=== PATIENT | male | born 1990 | race American Indian/Alaskan Native ===

== ENCOUNTER 2021-02-23 14:36 | Emergency (ER) | payer SELFPAY ==
[2021-02-23 14:48] VITALS: BP 130/75
--- NOTE | 2021-02-23 15:14 | Emergency Department Report ---
- General Chief complaint: Neck Pain/Injury Stated complaint: NECK PAIN Time Seen by Provider: 02/23/21 15:06 Source: patient Mode of arrival: Ambulatory Limitations: No Limitations - History of Present Illness Initial comments: 10-year-old male with no significant past medical history presents to the ER today with complaints of left lateral neck pain. Patient states that he started having left lateral neck pain about 3 days ago, then yesterday noticed a tender swollen painful area to the left lateral anterior neck area near his renteria. Patient states that he is also been having a mild left-sided sore throat. He states that he had an infection to the left lateral neck when he was an infant requiring surgical drainage. He states that he has been applying warm compresses to the area. He denies any drainage from it. He denies any difficulty swallowing, drooling or trismus. He denies any difficulty breathing. Denies any fever or chills. He denies any injury to his neck. MD complaint: lesion, other (Left lateral neck pain) -: Gradual (3 days ago) - Related Data Previous Rx's Medication Instructions Recorded Last Taken Type Ibuprofen [Motrin] 600 mg PO Q8H PRN #30 tablet 02/23/21 Unknown Rx cephALEXin [Keflex] 500 mg PO Q8HR #21 cap 02/23/21 Unknown Rx Allergies Allergy/AdvReac Type Severity Reaction Status Date / Time No Known Allergies Allergy Unverified 02/23/21 14:43 Abscess Boil HPI - HPI Chief Complaint: Neck Pain/Injury Stated Complaint: NECK PAIN Time Seen by Provider: 02/23/21 15:06 Home Medications: Previous Rx's Medication Instructions Recorded Last Taken Type Ibuprofen [Motrin] 600 mg PO Q8H PRN #30 tablet 02/23/21 Unknown Rx cephALEXin [Keflex] 500 mg PO Q8HR #21 cap 02/23/21 Unknown Rx Allergies/Adverse Reactions: Allergies Allergy/AdvReac Type Severity Reaction Status Date / Time No Known Allergies Allergy Unverified 02/23/21 14:43 ED Review of Systems ROS: Stated complaint: NECK PAIN Other details as noted in HPI Comment: All other systems reviewed and negative Constitutional: denies: chills, fever Eyes: denies: eye pain, eye discharge, vision change ENT: denies: ear pain, throat pain, dental pain, hearing loss, epistaxis, congestion Respiratory: denies: cough, shortness of breath, wheezing Cardiovascular: denies: chest pain, palpitations, dyspnea on exertion, orthopnea, edema, syncope, paroxysmal nocturnal dyspnea Gastrointestinal: denies: abdominal pain, nausea, vomiting, diarrhea, constipation, hematemesis, melena, hematochezia Genitourinary: denies: urgency, dysuria, discharge, testicular pain Musculoskeletal: myalgia, other (Left lateral neck pain). denies: back pain, joint swelling, arthralgia Skin: lesions Neurological: denies: headache, weakness, paresthesias Psychiatric: denies: anxiety, depression, auditory hallucinations, visual hallucinations, homicidal thoughts, suicidal thoughts Hematological/Lymphatic: denies: easy bleeding, easy bruising ED Past Medical Hx - Past Medical History Previous Medical History?: No - Surgical History Additional Surgical History: NECK - Social History Smoking Status: Current Every Day Smoker Substance Use Type: None - Medications Home Medications: Home Medications Medication Instructions Recorded Confirmed Last Taken Type Ibuprofen [Motrin] 600 mg PO Q8H PRN #30 tablet 02/23/21 Unknown Rx cephALEXin [Keflex] 500 mg PO Q8HR #21 cap 02/23/21 Unknown Rx ED Physical Exam - General Limitations: No Limitations ED Course Vital Signs 02/23/21 14:43 Temperature 98.7 F Pulse Rate 72 Respiratory 20 Rate Blood Pressure 130/75 O2 Sat by Pulse 98 Oximetry Critical care attestation.: If time is entered above; I have spent that time in minutes in the direct care of this critically ill patient, excluding procedure time. ED Disposition Clinical Impression: Cyst of neck Disposition: DC-01 TO HOME OR SELFCARE Is pt being admited?: No Does the pt Need Aspirin: No Condition: Stable Instructions: Epidermal Cyst Removal, Epidermal Cyst, [id number] Additional Instructions: Take the Keflex as prescribed. Take the Motrin as prescribed. Continue to apply warm compresses to the area. Follow-up with the [facility] listed on your discharge instructions. Return to the ER if the symptoms is getting worse despite medications. Prescriptions: cephALEXin [Keflex] 500 mg PO Q8HR #21 cap Ibuprofen [Motrin] 600 mg PO Q8H PRN #30 tablet PRN Reason: Pain Referrals: SREE MCGOWAN MD [Staff Physician] - 3-5 Days Lumps, And Bumps [Other] - 3-5 Days Forms: Work/School Release Form(ED) Time of Disposition: 15:14
== END 2021-02-23 15:25 | disposition home or self-care (01) ==
LOC: ED 14:36
DX: R22.1 Localized swelling, mass and lump, neck (principal); F17.200 Nicotine dependence, unspecified, uncomplicated; Z79.899 Other long term (current) drug therapy; Z98.890 Other specified postprocedural states
CPT/HCPCS: 99282